=== PATIENT | male | born 1945 | race Caucasian/White ===

== ENCOUNTER 2016-07-28 15:38 | Inpatient (IN) | payer OTHER ==
[2016-07-28 16:16] VITALS: BMI 20.7
--- NOTE | 2016-07-28 18:04 | HP ---
Admission [facility] Chief Complaint: for rehab from heroin Allergies/Adverse Reactions: Allergies Allergy/AdvReac Type Severity Reaction Status Date / Time No Known Allergies Allergy Verified 07/28/16 17:56 History of Present Illness: this 71 years old mal with heroin and [place]iju[place] dependence,last detox,last 2009 [facility] [place] deafness of right ear for 5 years cane for ambulatory aid frquent fall hypercholesterolemia copd longest peroid of sobriety 7 years Exam Limitations: No Limitations - Ebola screening Have you traveled outside of the country in the last 21 days: No Have you been sick,other than usual withdrawal symptoms: No - Review of Systems Constitutional: No Symptoms Reported EENT: reports: Other (deafness of right ear 5 years) Respiratory: reports: Other (copd) Cardiac: reports: No Symptoms Reported GI: reports: No Symptoms Reported : reports: No Symptoms Reported Musculoskeletal: reports: No Symptoms Reported Integumentary: reports: No Symptoms Reported Neuro: reports: No Symptoms reported Endocrine: reports: No Symptoms Reported Hematology: reports: No Symptoms Reported Psychiatric: reports: No Sypmtoms Reported, Judgement Intact, Mood/Affect Appropiate, Orientated x3 Patient History - Patient Medical History Hx Anemia: No Hx Asthma: No Hx Chronic Obstructive Pulmonary Disease (COPD): Yes (on advair) Hx Cancer: No Hx Cardiac Disorders: No Hx Congestive Heart Failure: No Hx Hypertension: No Hx Hypercholesterolemia: Yes (on med) Hx Pacemaker: No HX Cerebrovascular Accident: No Hx Seizures: Yes (last seizure 2 month ago) Hx Dementia: No Hx Diabetes: No Hx Gastrointestinal Disorders: No Hx Liver Disease: No Hx Genitourinary Disorders: No Hx Sexually Transmitted Disorders: No Hx Renal Disease (ESRD): No Hx Thyroid Disease: No Hx Human Immunodeficiency Virus (HIV): No (last 2012 negative) Hx Hepatitis C: No Hx Depression: No Hx Suicide Attempt: No Hx Bipolar Disorder: No Hx Schizophrenia: No Other Medical History: no suicidal,no homicidal,ambulation with cane,frequent fall - Patient Surgical History Past Surgical History: No - PPD History Previous Implant?: Yes Documented Results: Negative w/o proof Implanted On Prior [facility] Admission?: No PPD to be Administered?: Yes - Smoking Cessation Smoking history: Current every day smoker Have you smoked in the past 12 months: Yes Aproximately how many cigarettes per day: 10 Hx Chewing Tobacco Use: No Initiated information on smoking cessation: Yes 'Breaking Loose' booklet given: 07/28/16 - Substance & Tx. History Hx Alcohol Use: No Hx Substance Use: Yes Substance Use Type: Heroin Hx Substance Use Treatment: Yes (2009 [facility], [place]) - Substances Abused Heroin Route: Inhalation Frequency: 3-6 times per week Amount used: 1 to 2 bags Age of first use: 21 Date of Last Use: 07/07/16 Family Disease History - Family Disease History Family Disease History: Other: Father (alcohol,), Brother (alcohol,dsa, ) Admission Physical Exam [facility] - Vital Signs Vital Signs: Vital Signs - 24 hr 07/28/16 16:13 Temperature 97.5 F L Pulse Rate 55 L Respiratory 18 Rate Blood Pressure 112/72 - Physical General Appearance: Yes: Within Normal Limits HEENTM: Yes: Within Normal Limits, Pharynx Normal Respiratory: Yes: Lungs Clear, Normal Breath Sounds, No Respiratory Distress Neck: Yes: Within Normal Limits Breast: Yes: Within Normal Limits Cardiology: Yes: Within Normal Limits, Regular Rhythm, Regular Rate Abdominal: Yes: Within Normal Limits, Normal Bowel Sounds, Flat, Soft, Increased Bowel Sounds Genitourinary: Yes: Within Normal Limits Back: Yes: Within Normal Limits Musculoskeletal: Yes: Within Normal Limits Extremities: Yes: Amputation (left middle,ring and 5th finger) Neurological: Yes: front office associate II-XII NML intact, Fully Oriented, Alert, Motor Strength 5/5 Integumentary: Yes: Within Normal Limits Lymphatic: Yes: Within Normal Limits - Diagnostic (1) Opioid dependence Current Visit: Yes Status: Acute (2) Deafness in right ear Current Visit: Yes Status: Acute (3) Use of cane as ambulatory aid Current Visit: Yes Status: Acute (4) Frequent falls Current Visit: Yes Status: Acute (5) Hypercholesterolemia Current Visit: Yes Status: Acute (6) COPD (chronic obstructive pulmonary disease) Current Visit: Yes Status: Acute (7) Amputation finger Current Visit: Yes Status: Acute (8) History of frostbite Current Visit: Yes Status: Acute Cleared for Admission S - Detox or Rehab Claeared for Rehab Admission: Yes [facility] Breath Alcohol Content Breath Alcohol Content: 0 Urine Drug Screen - Results Drug Screen Negative: Yes
[2016-07-28] MEDS ORDERED: MENTHOL/PHENOL 1 EACH UD MM PRN (18:28)
[2016-07-28] MEDS ORDERED: IBUPROFEN 400 MG TABLET (FP) PO PRN (18:28)
[2016-07-28] MEDS ORDERED: ACETAMINOPHEN 325 MG TABLET (FP) PO PRN (18:28)
[2016-07-28] MEDS ORDERED: P-EPHED 60MG/TRIPROLIDI 2.5MG TABLET PO PRN (18:28)
[2016-07-28] MEDS ORDERED: LOPERAMIDE HCL 2 MG CAPSULE PO PRN (18:28)
[2016-07-28] MEDS ORDERED: MAGNESIUM HYDROX 2400MG/30ML ORAL SUSPENSION 30 ML CUP PO PRN (18:28)
[2016-07-28] MEDS ORDERED: MAG HYDROX/AL HYDROX/SIMETH 30 ML UNIT-DOSE CUP PO PRN (18:28)
[2016-07-28] MEDS ORDERED: guaiFENesin/D-METHORPHAN HB 10 ML UNIT-DOSE CUPS PO PRN (18:28)
[2016-07-28] MEDS ORDERED: MAGNESIUM CITRATE 300 ML BOTTLE PO PRN (18:28)
[2016-07-28] MEDS ORDERED: hydrOXYzine PAMOATE 25 MG CAPSULE (FP) PO PRN (18:28)
[2016-07-28] MEDS: NICOTINE 21 MG/24 HOURS TOPICAL PATCH TD SCH (20:44)
[2016-07-28] MEDS: ATORVASTATIN CA 20 MG TABLET (FP) PO SCH (21:57)
[2016-07-28] MEDS: THIAMINE HCL 100 MG TABLET (FP) PO SCH (21:57)
[2016-07-28] MEDS: BUDESONIDE/FORMETEROL FUMARATE 80/4.5 mcg INHALER IH SCH (21:58)
[2016-07-29 00:42] LABS: URINE APPEARANCE CLEAR; URINE BILIRUBIN NEGATIVE (NEGATIVE); URINE BLOOD NEGATIVE (NEGATIVE); URINE COLOR LTYELLOW; URINE GLUCOSE (UA) NEGATIVE (NEGATIVE); URINE KETONE NEGATIVE (NEGATIVE); URINE LEUK ESTERASE NEGATIVE (NEGATIVE); URINE NITRITE NEGATIVE (NEGATIVE); URINE PROTEIN NEGATIVE (NEGATIVE); URINE UROBILINOGEN NEGATIVE E.U./dl (0.2-1.0)
--- NOTE | 2016-07-29 07:04 | HP ---
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 Smokes 10 cigarettes daily Psychiatric History: Denies history of previous psychiatric treatment Physical/Sexual Abuse/Trauma History: Denies history of emotional, physical or sexual abuse as well as DV relationship Additional Comment: Reports history of multiple arrests including 8 felony convictions. 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 Denies being on parole/probation at present Vital Signs: Vital Signs - 24 hr 07/28/16 07/29/16 07/29/16 16:13 00:30 03:30 Temperature 97.5 F L Pulse Rate 55 L Respiratory 18 16 16 Rate Blood Pressure 112/72 Allergies/Adverse Reactions: Allergies Allergy/AdvReac Type Severity Reaction Status Date / Time No Known Allergies Allergy Verified 07/28/16 17:56 Date of last physical exam: 07/28/16 Concur with the findings of this exam: Yes - Substance Abuse/Tx History Hx Alcohol Use: No Hx Substance Use: Yes Substance Use Type: Heroin (Started using heroin at age 21, consumes 1-2 3-6 times weekly. Last used on 07/07/16) Hx Substance Use Treatment: Yes (4 previous inpt detox & 2 inpt rehab) - Admission Criteria Previous failed treatment: No Poor recovery environment: Yes Comorbidities: Yes Lacks judgement: Yes Mental Status Exam - Mental Status Exam Alert and Oriented to: Time, Place, Person Cognitive Function: Fair Patient Appearance: Well Groomed Mood: Anxious Affect: Appropriate Patient Behavior: Cooperative Speech Pattern: Clear Voice Loudness: Normal Thought Process: Intact Thought Disorder: Not Present Hallucinations: Denies Suicidal Ideation: Denies Homicidal Ideation: Denies Insight/Judgement: Fair Sleep: Poorly Appetite: Good Muscle strength/Tone: Normal Gait/Station: Other (Walks with a cane because he loses his equilibrium) Psychiatric Findings - Problem List (Max 1, 2,3) (1) Opioid dependence Current Visit: Yes Status: Acute (2) Nicotine dependence Current Visit: Yes Status: Acute (3) Substance-induced anxiety disorder Current Visit: Yes Status: Acute (4) Amputation finger Current Visit: Yes Status: Acute (5) History of frostbite Current Visit: Yes Status: Acute (6) Deafness in right ear Current Visit: Yes Status: Acute (7) Hypercholesterolemia Current Visit: Yes Status: Acute (8) Use of cane as ambulatory aid Current Visit: Yes Status: Acute - Initial Treatment Plan Initial Treatment Plan: Monitor progress
[2016-07-29] MEDS ORDERED: PT OWN MED DRAWER 7, Y5N ONE ×2 (09:37→21:11)
[2016-07-29 10:05] LABS: MCH 30.4 pg (25.7-33.7); MCHC 33.4 g/dl (32.0-35.9); MEAN CELL VOLUME 91.1 fl (80-96); MEAN PLT VOLUME 7.6 fl (7.5-11.1); PLATELET COUNT 268 K/MM3 (134-434); RDW 14.3 % (11.9-15.9); WHITE BLOOD COUNT 7.5 K/mm3 (4.0-10.0)
--- NOTE | 2016-07-29 10:18 | EKG ---
Test Reason : Blood Pressure : / mmHG Vent. Rate : 054 BPM Atrial Rate : 054 BPM P-R Int : 206 ms QRS Dur : 094 ms QT Int : 428 ms P-R-T Axes : 075 069 061 degrees QTc Int : 405 ms SINUS BRADYCARDIA NO PREVIOUS ECGS AVAILABLE Confirmed by MATT JIANG MD ([id number]) on 07/29/2016 10:18:00 AM Referred By: Confirmed By:MATT JIANG MD
[2016-07-29] MEDS: PRENATAL VITAMINS W/ FOLIC ACID TABLET (FP) PO SCH (10:33)
[2016-07-29] MEDS: ASPIRIN 81 MG CHEWABLE TABLETS PO SCH (10:33)
[2016-07-29] MEDS: DIVALPROEX SODIUM 500 MG TABLET E.C. PO SCH (10:33)
[2016-07-29] MEDS: NICOTINE 21 MG/24 HOURS TOPICAL PATCH TD SCH (10:33)
[2016-07-29] MEDS: BUDESONIDE/FORMETEROL FUMARATE 80/4.5 mcg INHALER IH SCH ×2 (10:34→21:11)
[2016-07-29 12:13] LABS: ALBUMIN 3.7 g/dl (3.4-5.0); ALK PHOS 79 U/L (45-117); ANION GAP 12 (8-16); BILIRUBIN,TOTAL 0.3 mg/dL (0.2-1.0); CALCIUM 8.9 mg/dL (8.5-10.1); CO2 21 mmol/L (21-32); CREATININE 0.9 mg/dL (0.7-1.3); GLUCOSE,RANDOM 89 mg/dL (74-106); SGOT/AST 21 U/L (15-37); SGPT/ALT 26 U/L (12-78); TOT PROT 6.9 g/dl (6.4-8.2)
[2016-07-29] MEDS: ATORVASTATIN CA 20 MG TABLET (FP) PO SCH (21:10)
[2016-07-29] MEDS: THIAMINE HCL 100 MG TABLET (FP) PO SCH (21:11)
[2016-07-30] MEDS: NICOTINE 21 MG/24 HOURS TOPICAL PATCH TD SCH (10:39)
[2016-07-30] MEDS: DIVALPROEX SODIUM 500 MG TABLET E.C. PO SCH (10:40)
[2016-07-30] MEDS: ASPIRIN 81 MG CHEWABLE TABLETS PO SCH (10:40)
[2016-07-30] MEDS: PRENATAL VITAMINS W/ FOLIC ACID TABLET (FP) PO SCH (10:40)
[2016-07-30] MEDS ORDERED: PT OWN MED DRAWER 7, Y5N ONE ×2 (10:41→21:30)
[2016-07-30] MEDS: BUDESONIDE/FORMETEROL FUMARATE 80/4.5 mcg INHALER IH SCH ×2 (10:43→21:30)
[2016-07-30] MEDS: THIAMINE HCL 100 MG TABLET (FP) PO SCH (21:29)
[2016-07-30] MEDS: diphenhydrAMINE HCL 50 MG CAPSULE PO PRN (21:29)
[2016-07-30] MEDS: ATORVASTATIN CA 20 MG TABLET (FP) PO SCH (21:29)
[2016-07-31] MEDS ORDERED: PT OWN MED DRAWER 7, Y5N ONE ×2 (08:56→21:09)
[2016-07-31] MEDS: BUDESONIDE/FORMETEROL FUMARATE 80/4.5 mcg INHALER IH SCH ×2 (09:33→21:09)
[2016-07-31] MEDS: NICOTINE 21 MG/24 HOURS TOPICAL PATCH TD SCH (09:33)
[2016-07-31] MEDS: ASPIRIN 81 MG CHEWABLE TABLETS PO SCH (09:33)
[2016-07-31] MEDS: DIVALPROEX SODIUM 500 MG TABLET E.C. PO SCH (09:34)
[2016-07-31] MEDS: PRENATAL VITAMINS W/ FOLIC ACID TABLET (FP) PO SCH (09:34)
[2016-07-31] MEDS: diphenhydrAMINE HCL 50 MG CAPSULE PO PRN (21:08)
[2016-07-31] MEDS: THIAMINE HCL 100 MG TABLET (FP) PO SCH (21:08)
[2016-07-31] MEDS: ATORVASTATIN CA 20 MG TABLET (FP) PO SCH (21:08)
[2016-08-01] MEDS: PRENATAL VITAMINS W/ FOLIC ACID TABLET (FP) PO SCH (09:29)
[2016-08-01] MEDS: DIVALPROEX SODIUM 500 MG TABLET E.C. PO SCH (09:30)
[2016-08-01] MEDS: ASPIRIN 81 MG CHEWABLE TABLETS PO SCH (09:30)
[2016-08-01] MEDS: BUDESONIDE/FORMETEROL FUMARATE 80/4.5 mcg INHALER IH SCH ×2 (09:31→21:43)
[2016-08-01] MEDS: NICOTINE 21 MG/24 HOURS TOPICAL PATCH TD SCH (09:31)
[2016-08-01] MEDS: diphenhydrAMINE HCL 50 MG CAPSULE PO PRN (21:43)
[2016-08-01] MEDS: THIAMINE HCL 100 MG TABLET (FP) PO SCH (21:43)
[2016-08-01] MEDS: ATORVASTATIN CA 20 MG TABLET (FP) PO SCH (21:43)
[2016-08-02] MEDS: NICOTINE 21 MG/24 HOURS TOPICAL PATCH TD SCH (10:15)
[2016-08-02] MEDS: BUDESONIDE/FORMETEROL FUMARATE 80/4.5 mcg INHALER IH SCH ×2 (10:15→21:11)
[2016-08-02] MEDS: ASPIRIN 81 MG CHEWABLE TABLETS PO SCH (10:15)
[2016-08-02] MEDS: PRENATAL VITAMINS W/ FOLIC ACID TABLET (FP) PO SCH (10:15)
[2016-08-02] MEDS: DIVALPROEX SODIUM 500 MG TABLET E.C. PO SCH (10:15)
[2016-08-02] MEDS ORDERED: PT OWN MED DRAWER 7, Y5N ONE (21:09)
[2016-08-02] MEDS: THIAMINE HCL 100 MG TABLET (FP) PO SCH (21:09)
[2016-08-02] MEDS: diphenhydrAMINE HCL 50 MG CAPSULE PO PRN (21:10)
[2016-08-02] MEDS: ATORVASTATIN CA 20 MG TABLET (FP) PO SCH (21:10)
[2016-08-03] MEDS: ASPIRIN 81 MG CHEWABLE TABLETS PO SCH (10:01)
[2016-08-03] MEDS: BUDESONIDE/FORMETEROL FUMARATE 80/4.5 mcg INHALER IH SCH ×2 (10:01→21:23)
[2016-08-03] MEDS: DIVALPROEX SODIUM 500 MG TABLET E.C. PO SCH (10:01)
[2016-08-03] MEDS: PRENATAL VITAMINS W/ FOLIC ACID TABLET (FP) PO SCH (10:01)
[2016-08-03] MEDS: NICOTINE 21 MG/24 HOURS TOPICAL PATCH TD SCH (10:02)
[2016-08-03] MEDS: THIAMINE HCL 100 MG TABLET (FP) PO SCH (21:22)
[2016-08-03] MEDS: ATORVASTATIN CA 20 MG TABLET (FP) PO SCH (21:22)
[2016-08-03] MEDS: diphenhydrAMINE HCL 50 MG CAPSULE PO PRN (21:22)
[2016-08-04] MEDS ORDERED: PT OWN MED DRAWER 7, Y5N ONE ×2 (08:37→21:33)
[2016-08-04] MEDS: PRENATAL VITAMINS W/ FOLIC ACID TABLET (FP) PO SCH (09:53)
[2016-08-04] MEDS: BUDESONIDE/FORMETEROL FUMARATE 80/4.5 mcg INHALER IH SCH ×2 (09:53→21:32)
[2016-08-04] MEDS: ASPIRIN 81 MG CHEWABLE TABLETS PO SCH (09:54)
[2016-08-04] MEDS: DIVALPROEX SODIUM 500 MG TABLET E.C. PO SCH (09:54)
[2016-08-04] MEDS: NICOTINE 21 MG/24 HOURS TOPICAL PATCH TD SCH (09:54)
[2016-08-04] MEDS: THIAMINE HCL 100 MG TABLET (FP) PO SCH (21:32)
[2016-08-04] MEDS: ATORVASTATIN CA 20 MG TABLET (FP) PO SCH (21:32)
[2016-08-04] MEDS: diphenhydrAMINE HCL 50 MG CAPSULE PO PRN (21:32)
[2016-08-05] MEDS: PRENATAL VITAMINS W/ FOLIC ACID TABLET (FP) PO SCH (09:58)
[2016-08-05] MEDS: DIVALPROEX SODIUM 500 MG TABLET E.C. PO SCH (09:58)
[2016-08-05] MEDS: NICOTINE 21 MG/24 HOURS TOPICAL PATCH TD SCH (09:58)
[2016-08-05] MEDS: ASPIRIN 81 MG CHEWABLE TABLETS PO SCH (09:58)
[2016-08-05] MEDS: BUDESONIDE/FORMETEROL FUMARATE 80/4.5 mcg INHALER IH SCH ×2 (09:59→21:34)
[2016-08-05] MEDS: ATORVASTATIN CA 20 MG TABLET (FP) PO SCH (21:33)
[2016-08-05] MEDS: diphenhydrAMINE HCL 50 MG CAPSULE PO PRN (21:33)
[2016-08-05] MEDS: THIAMINE HCL 100 MG TABLET (FP) PO SCH (21:33)
[2016-08-05] MEDS ORDERED: PT OWN MED DRAWER 7, Y5N ONE (21:34)
[2016-08-06] MEDS: NICOTINE 21 MG/24 HOURS TOPICAL PATCH TD SCH (09:52)
[2016-08-06] MEDS: PRENATAL VITAMINS W/ FOLIC ACID TABLET (FP) PO SCH (09:52)
[2016-08-06] MEDS: ASPIRIN 81 MG CHEWABLE TABLETS PO SCH (09:52)
[2016-08-06] MEDS: DIVALPROEX SODIUM 500 MG TABLET E.C. PO SCH (09:52)
[2016-08-06] MEDS: BUDESONIDE/FORMETEROL FUMARATE 80/4.5 mcg INHALER IH SCH ×2 (09:54→22:11)
[2016-08-06] MEDS ORDERED: PT OWN MED DRAWER 7, Y5N ONE (09:55)
[2016-08-06] MEDS: THIAMINE HCL 100 MG TABLET (FP) PO SCH (22:10)
[2016-08-06] MEDS: diphenhydrAMINE HCL 50 MG CAPSULE PO PRN (22:10)
[2016-08-06] MEDS: ATORVASTATIN CA 20 MG TABLET (FP) PO SCH (22:10)
[2016-08-07] MEDS ORDERED: PT OWN MED DRAWER 7, Y5N ONE (08:31)
[2016-08-07] MEDS: BUDESONIDE/FORMETEROL FUMARATE 80/4.5 mcg INHALER IH SCH ×2 (09:49→22:00)
[2016-08-07] MEDS: DIVALPROEX SODIUM 500 MG TABLET E.C. PO SCH (09:49)
[2016-08-07] MEDS: NICOTINE 21 MG/24 HOURS TOPICAL PATCH TD SCH (09:49)
[2016-08-07] MEDS: PRENATAL VITAMINS W/ FOLIC ACID TABLET (FP) PO SCH (09:49)
[2016-08-07] MEDS: ASPIRIN 81 MG CHEWABLE TABLETS PO SCH (09:49)
[2016-08-07] MEDS: HYDROCORTISONE 1% TOPICAL CREAM 30 GM TUBE TP SCH ×2 (17:14→22:00)
[2016-08-07] MEDS: ATORVASTATIN CA 20 MG TABLET (FP) PO SCH (21:59)
[2016-08-07] MEDS: diphenhydrAMINE HCL 50 MG CAPSULE PO PRN (21:59)
[2016-08-07] MEDS: THIAMINE HCL 100 MG TABLET (FP) PO SCH (21:59)
[2016-08-08 07:06] VITALS: BP 101/64; PULSE 74; TEMP 97.4
[2016-08-08] MEDS ORDERED: PT OWN MED DRAWER 7, Y5N ONE (09:21)
[2016-08-08] MEDS: NICOTINE 21 MG/24 HOURS TOPICAL PATCH TD SCH (09:42)
[2016-08-08] MEDS: DIVALPROEX SODIUM 500 MG TABLET E.C. PO SCH (09:42)
[2016-08-08] MEDS: HYDROCORTISONE 1% TOPICAL CREAM 30 GM TUBE TP SCH (09:42)
[2016-08-08] MEDS: BUDESONIDE/FORMETEROL FUMARATE 80/4.5 mcg INHALER IH SCH (09:42)
[2016-08-08] MEDS: PRENATAL VITAMINS W/ FOLIC ACID TABLET (FP) PO SCH (09:42)
--- NOTE | 2016-08-08 09:44 | PN ---
Psychiatric Progress Note Vital Signs: Vital Signs Period Temp Pulse Resp BP Sys/Adrian Pulse Ox Last 24 Hr 97.4 F 74 17-18 101/64 Current Medications: Active Medications Generic Name Dose Route Start Last Admin Trade Name Freq PRN Reason Stop Dose Admin Acetaminophen 650 mg 07/28/16 18:28 Tylenol - PO Q4H PRN PAIN Al Hydroxide/Mg Hydroxide 30 ml 07/28/16 18:28 Mylanta Oral Suspension - PO Q6H PRN DYSPEPSIA Aspirin 81 mg 07/29/16 10:00 08/07/16 09:49 Asa - PO 81 mg DAILY BRUNA Administration Atorvastatin Calcium 20 mg 07/28/16 22:00 08/07/16 21:59 Lipitor - PO 20 mg HS BRUNA Administration Budesonide/Formoterol Fumarate 2 puff 07/28/16 22:00 08/07/16 22:00 Symbicort 80/4.5mcg - IH 2 puff BID BRUNA Administration Diphenhydramine HCl 50 mg 07/28/16 18:28 08/07/16 21:59 Benadryl - PO 50 mg HSMR1 PRN Administration INSOMNIA Divalproex Sodium 500 mg 07/29/16 10:00 08/07/16 09:49 Depakote - PO 500 mg DAILY BRUNA Administration Eucalyptus/Menthol/Phenol/Sorbitol 1 each 07/28/16 18:28 Cepastat Lozenge - MM Q4H PRN SORE THROAT Guaifenesin 10 ml 07/28/16 18:28 Robitussin Dm - PO Q6H PRN COUGH Hydrocortisone 1 applic 08/07/16 18:00 08/07/16 22:00 Hytone 1% Cream - TP 1 applic QID BRUNA Administration Hydroxyzine Pamoate 25 mg 07/28/16 18:28 Vistaril - PO Q4H PRN AGITATION Ibuprofen 400 mg 07/28/16 18:28 Motrin - PO Q6H PRN SEVERE PAIN Loperamide HCl 4 mg 07/28/16 18:28 Imodium - PO Q6H PRN DIARRHEA Magnesium Citrate 300 ml 07/28/16 18:28 Citroma - PO Q48H PRN CONSTIPATION Magnesium Hydroxide 30 ml 07/28/16 18:28 Milk Of Magnesia - PO DAILY PRN CONSTIPATION Nicotine 21 mg 07/28/16 18:30 08/07/16 09:49 Nicoderm Patch - TD Not Given DAILY BRUNA Multivit/Folic Acid/Iron 1 tab 07/29/16 10:00 08/07/16 09:49 Vitamins ([facility]) - PO 1 tab DAILY BRUNA Administration Pseudoephedrine/Triprolidine 1 combo 07/28/16 18:28 Actifed - PO TID PRN NASAL CONGESTION Thiamine HCl 100 mg 07/28/16 22:00 08/07/16 21:59 Vitamin B1 - PO 100 mg HS BRUNA Administration Psychiatric Treatment Plan - Problem List (1) Opioid dependence Current Visit: Yes (2) Nicotine dependence Current Visit: Yes (3) Substance-induced anxiety disorder Current Visit: Yes (4) Amputation finger Current Visit: Yes (5) History of frostbite Current Visit: Yes (6) Deafness in right ear Current Visit: Yes (7) Hypercholesterolemia Current Visit: Yes (8) Use of cane as ambulatory aid Current Visit: Yes
--- NOTE | 2016-08-08 09:50 | PN ---
Psychiatric Progress Note Vital Signs: Vital Signs Period Temp Pulse Resp BP Sys/Adrian Pulse Ox Last 24 Hr 97.4 F 74 17-18 101/64 Date of Session: 08/08/16 Chief Complaint:: Psychiatrist Discharge Note HPI: Patient addressing Opoid Dependence comorbid with Nicotine Dependence and Substance-Induced Anxiety Disorder ROS: S/P amputation of fingers of left hand Current Medications: Active Medications Generic Name Dose Route Start Last Admin Trade Name Freq PRN Reason Stop Dose Admin Acetaminophen 650 mg 07/28/16 18:28 Tylenol - PO Q4H PRN PAIN Al Hydroxide/Mg Hydroxide 30 ml 07/28/16 18:28 Mylanta Oral Suspension - PO Q6H PRN DYSPEPSIA Aspirin 81 mg 07/29/16 10:00 08/07/16 09:49 Asa - PO 81 mg DAILY BRUNA Administration Atorvastatin Calcium 20 mg 07/28/16 22:00 08/07/16 21:59 Lipitor - PO 20 mg HS BRUNA Administration Budesonide/Formoterol Fumarate 2 puff 07/28/16 22:00 08/07/16 22:00 Symbicort 80/4.5mcg - IH 2 puff BID BRUNA Administration Diphenhydramine HCl 50 mg 07/28/16 18:28 08/07/16 21:59 Benadryl - PO 50 mg HSMR1 PRN Administration INSOMNIA Divalproex Sodium 500 mg 07/29/16 10:00 08/07/16 09:49 Depakote - PO 500 mg DAILY BRUNA Administration Eucalyptus/Menthol/Phenol/Sorbitol 1 each 07/28/16 18:28 Cepastat Lozenge - MM Q4H PRN SORE THROAT Guaifenesin 10 ml 07/28/16 18:28 Robitussin Dm - PO Q6H PRN COUGH Hydrocortisone 1 applic 08/07/16 18:00 08/07/16 22:00 Hytone 1% Cream - TP 1 applic QID BRUNA Administration Hydroxyzine Pamoate 25 mg 07/28/16 18:28 Vistaril - PO Q4H PRN AGITATION Ibuprofen 400 mg 07/28/16 18:28 Motrin - PO Q6H PRN SEVERE PAIN Loperamide HCl 4 mg 07/28/16 18:28 Imodium - PO Q6H PRN DIARRHEA Magnesium Citrate 300 ml 07/28/16 18:28 Citroma - PO Q48H PRN CONSTIPATION Magnesium Hydroxide 30 ml 07/28/16 18:28 Milk Of Magnesia - PO DAILY PRN CONSTIPATION Nicotine 21 mg 07/28/16 18:30 08/07/16 09:49 Nicoderm Patch - TD Not Given DAILY BRUNA Multivit/Folic Acid/Iron 1 tab 07/29/16 10:00 08/07/16 09:49 Vitamins ([facility]) - PO 1 tab DAILY BRUNA Administration Pseudoephedrine/Triprolidine 1 combo 07/28/16 18:28 Actifed - PO TID PRN NASAL CONGESTION Thiamine HCl 100 mg 07/28/16 22:00 08/07/16 21:59 Vitamin B1 - PO 100 mg HS BRUNA Administration Current Side Effect: No Lab tests ordered: Yes Lab tests reviewed: Yes Provider note:: Patient has completed this program today. He has met his treatment goals and will continue to address his issues in outpatient treatment at [facility]. Told sports book writer that he has been through this kind of program before and this has reinforced prior knowledge. He is stable for discharge today Total face to face time:: 35 Mental Status Exam - Mental Status Exam Alert and Oriented to: Time, Place, Person Cognitive Function: Fair Patient Appearance: Well Groomed Mood: Hopeful, Euthymic Affect: Appropriate Patient Behavior: Cooperative Speech Pattern: Clear Voice Loudness: Normal Thought Process: Intact Thought Disorder: Not Present Hallucinations: Denies Suicidal Ideation: Denies Homicidal Ideation: Denies Insight/Judgement: Fair Sleep: Fair Appetite: Good Muscle strength/Tone: Normal Gait/Station: Other (Walks with a cane) Psychiatric Treatment Plan - Problem List (1) Opioid dependence Current Visit: Yes (2) Nicotine dependence Current Visit: Yes (3) Substance-induced anxiety disorder Current Visit: Yes (4) Amputation finger Current Visit: Yes (5) History of frostbite Current Visit: Yes (6) Deafness in right ear Current Visit: Yes (7) Hypercholesterolemia Current Visit: Yes (8) Use of cane as ambulatory aid Current Visit: Yes Initial treatment plan: Patient is discharged today and referred back to [facility] for outpatient treatment
== END 2016-08-08 09:55 | disposition home or self-care (01) | DRG 895 ==
LOC: YASAS 15:38 → Y3W 18:29
PROVIDERS: ADMIT Psychiatry & Neurology Psychiatry; ATTEND Psychiatry & Neurology Psychiatry
PROC: HZ42ZZZ Group Counseling for Substance Abuse Treatment, Cognitive-Behavioral (ICD-10-PCS; principal; 2016-08-08)
DX: F11.20 Opioid dependence, uncomplicated (principal); F17.210 Nicotine dependence, cigarettes, uncomplicated; F19.24 Other psychoactive substance dependence with psychoactive substance-induced mood disorder; I25.2 Old myocardial infarction; Z95.5 Presence of coronary angioplasty implant and graft; E78.00 Pure hypercholesterolemia, unspecified; J44.9 Chronic obstructive pulmonary disease, unspecified; H91.8X1 Other specified hearing loss, right ear; R26.2 Difficulty in walking, not elsewhere classified; Z59.0 Homelessness
CPT/HCPCS: 36415; 71010-TC; 80053; 81003; 85027; 86593; 93005; 93010